=== PATIENT | male | born 1960 | race Caucasian/White ===

== ENCOUNTER 2024-10-16 03:04 | Emergency (ER) | payer MEDICAID ==
[~2024-10-16] VITALS: Ht 175.3 cm; Wt 80.1 kg
--- NOTE | 2024-10-16 03:51 | ED.PDOC ---
History of Present Illness HPI Comments 64 y/o M presents with c/o left-eye swelling, today. Patient endorses on onset of symptoms following exposure to known pine allergen 2 days ago. Patient reports on symptoms worsening, with no improvement or relief with Benadryl medication use. He denies any pain, vision change, or other associated symptoms or modifiers at this time. Chief Complaint: Allergic Reaction Time Seen by MD: 03:45 Primary Care Provider: UNKNOWN Reviewed Notes: Nurses Notes, Medications, Allergies Allergies: Coded Allergies: [place] (Verified Allergy, Unknown, 10/16/24) swelling Information Source: Patient Mode of Arrival: Ambulatory Severity: Moderate Timing: Days Duration: Since onset Prehospital treatment: Other (see HPI) Past Medical History PAST MEDICAL HISTORY: Anxiety Surgical History: Denies all surgeries Family History Family History: Unknown Social History Smoker: Non-Smoker Alcohol: Denies ETOH Use Drugs: Denies Drug Use Lives In: Home All Other Systems: Reviewed and Negative (Comprehensive systems review obtained and negative except for what is stated in the HPI.) Physical Exam General Appearance: No Apparent Distress, Normal HEENT: Pharynx Normal, TMs Normal, Other (erythema and swelling to surround left-eye tissues, otherwise normal HEENT exam ) Neck: Full Range of Motion, Non-Tender, Normal, Normal Inspection Respiratory: Chest Non-Tender, Lungs Clear, No Accessory Muscle Use, No Respiratory Distress, Normal Breath Sounds Cardiovascular: No Edema, No JVD, No Murmur, No Gallop, Normal Peripheral Pulses, Regular Rate/Rhythm Breast Exam: Deferred Gastrointestinal: No Organomegaly, Non Tender, No Pulsatile Mass, Normal Bowel Sounds, Soft Genitalia: Deferred Pelvic: Deferred Rectal: Deferred Extremities: No calf tenderness, Normal capillary refill, Normal inspection, Normal range of motion, Non-tender, No pedal edema Musculoskeletal : Apperance: Normal Neurologic: Alert, administrative services director II-XII nml as Tested, No Motor Deficits, Normal Affect, Normal Mood, No Sensory Deficits Cerebellar Function: Normal Reflexes: Normal Skin: Dry, Normal Color, Warm Lymphatic: No Adenopathy Was a procedure done? Was a procedure done?: No Differential Dx Considerations may include: allergic reaction to known allergen X-Ray, Labs, Meds, VS Vital Signs Date Time Temp Pulse Resp B/P (MAP) Pulse Ox O2 Delivery O2 Flow Rate FiO2 10/16/24 04:16 72 20 98 Room Air* 0 21 10/16/24 04:12 97.9 70 16 164/99 (120) 98 97.9 10/16/24 03:20 16 96 Room Air* 0 21 10/16/24 03:20 98.0 86 16 175/110 (131) 96 98.0 Current Medications Medications (Trade) Dose Ordered Sig/[place] Route Start Time Stop Time Status Last Admin Methylprednisolone Sodium Succinate (Solu Medrol) 125 mg ONCE ONCE IV 10/16/24 04:00 10/16/24 04:01 DC 10/16/24 04:00 Famotidine (Pepcid Injection) 20 mg ONCE ONCE IV 10/16/24 04:00 10/16/24 04:01 DC 10/16/24 04:00 Sodium Chloride 1,000 ml @ 1,000 mls/hr Q1H ONCE IV 10/16/24 04:00 10/16/24 04:59 10/16/24 03:59 Time of 1ST Reevaluation: 04:15 Reevaluation 1ST: Unchanged Patient Education/Counseling: Diagnosis, Treatment Family Education/Counseling: No Family Present Departure 1 Departure Time of Disposition: 04:42 (Patient likely had an allergic reaction. Patient's symptoms are improving after steroids. We will discharge patient home with outpatient follow up) Impression: Primary Impression: Allergic reaction Qualified Codes: T78.40XA - Allergy, unspecified, initial encounter Disposition: HOME / SELF CARE / HOMELESS Condition: Stable Additional Instructions: You had an allergic reaction. You received medications in the ER. You were prescribed steroids and an epinephrine pain. Please use as directed. You should follow up with your regular doctor within one week to ensure you are doing better. You may benefit from an appointment with an Hand I Cutter. If your symptoms worsen, or you have any other concerns then please return to the ER. e-Prescriptions Epinephrine (Anaphylaxis) (Auvi-Q) 0.1 Mg/0.1 Ml Inj 0.1 MG IJ O PRN for 1 Day, #1 INJ Prov: JASON GALINDO MD 10/16/24 Prednisone (Prednisone) 20 Mg Tab 40 MG PO DAILY for 5 Days, #10 MG Prov: JASON GALINDO MD 10/16/24 Discharged With: Self Critical Care Note Critical Care Time?: No Stability Stability form required: No Heart Score Heart Score: Heart Score Response (Comments) Value History N/A 0 EKG N/A 0 Age N/A 0 Risk Factors N/A 0 Troponin N/A 0 Total 0 I personally scribed for JASON GALINDO MD ([email or web address]) on 10/16/24 at 03:51. Electronically submitted by Dudley Monteiro ([email or web address]). JASON GALINDO MD Oct 16, 2024 03:51
[2024-10-16] MEDS: SODIUM CHLORIDE 0.9% 1,000 ML IV ONE (03:59)
[2024-10-16] MEDS: FAMOTIDINE (10MG/ML) 2ML VL IV ONE (04:00)
[2024-10-16] MEDS: methylPREDNISolone SOD SUCC 125 MG/2 ML VL IV ONE (04:00)
[2024-10-16 04:12] VITALS: TEMP 97.9
[2024-10-16 04:16] VITALS: PULSE 72; RESP 20; O2SAT 98
[2024-10-16] MEDS ORDERED: PRED20TA2 PO (04:43)
[2024-10-16] MEDS ORDERED: EPIN0.1I11 IJ (04:43)
[2024-10-16 04:49] VITALS: BP 162/96; PULSE 73; RESP 16; O2SAT 96
== END 2024-10-16 04:54 | disposition home or self-care (01) ==
LOC: ER 03:04
DX: T78.40XA Allergy, unspecified, initial encounter (principal); Z91.018 Allergy to other foods; X58.XXXA Exposure to other specified factors, initial encounter
CPT/HCPCS: 96361; 96374; 96375; 99284; J2919; J3490; J7030